=== PATIENT | male | born 1980 | race Caucasian/White ===

== ENCOUNTER 2019-05-29 11:55 | Emergency (ER) | payer OTHER ==
[~2019-05-29] VITALS: Ht 180.3 cm; Wt 134.3 kg
[2019-05-29 12:56] LABS: ANION GAP 8 mmol/L (7-16); BUN 17 mg/dL (7-18); CHLORIDE 100 mmol/L (98-107); CO2 29 mmol/L (21-32); CREATININE 1.3 mg/dL (0.7-1.3); GLUCOSE 244 mg/dL (74-106); POTASSIUM 4.2 mmol/L (3.5-5.1); SODIUM 137 mmol/L (136-145)
[2019-05-29 12:59] LABS: INR 1.1
[2019-05-29 13:06] LABS: MAGNESIUM 2.2 mg/dL (1.8-2.4); TROPONIN-I <0.06 ng/mL (<0.06)
--- NOTE | 2019-05-29 16:18 | EKG ---
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 Borderline prolonged IA interval LAE, consider biatrial enlargement No previous ECG available for comparison Electronically Signed On 05-29-2019 16:18:00 PROJECT INTERN by Dario Sigala [email or web address] <ELECTRONICALLY SIGNED> By: Dario Sigala MD 05/29/19 1618 1154 1154 Dario Sigala MD /ZELDA
--- NOTE | 2019-05-29 16:19 | EKG ---
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
[2019-05-29] MEDS ORDERED: PRADAXA150 MG PO (16:40)
[2019-05-29] MEDS ORDERED: CALAN SR240 MG PO (16:40)
[2019-05-29 17:12] VITALS: BP 108/66
== END 2019-05-29 17:13 | disposition home or self-care (01) ==
LOC: ER 11:55
PROVIDERS: Emergency Medicine Emergency Medical Services
DX: I48.0 Paroxysmal atrial fibrillation (principal); R42 Dizziness and giddiness; E11.9 Type 2 diabetes mellitus without complications; J44.9 Chronic obstructive pulmonary disease, unspecified

== ENCOUNTER 2019-06-02 15:48 | Inpatient (IN) | payer OTHER ==
[~2019-06-02] VITALS: Ht 152.4 cm; Wt 133.4 kg
[~2019-06-02 15:48] MED LIST: CALAN SR240 MG PO; PRADAXA150 MG PO
[2019-06-02 15:49] VITALS: BP 134/77
[2019-06-02 16:10] LABS: ABSOLUTE NEUTROPHILS 8.3 thou/uL (1.4-8.2); BASOPHILS 0.9 % (0.0-2.0); EOSINOPHILS 0.2 % (0.0-3.0); HEMATOCRIT 45.5 % (42.0-52.0); HEMOGLOBIN 15.2 gm/dL (14.0-18.0); LYMPHOCYTES 20.6 % (24.0-44.0); MCH 28.8 pg (26.0-34.0); MCHC 33.4 g/dL (28.0-37.0); MCV 86.4 fL (80.0-100.0); MONOCYTES 5.9 % (1.0-8.0); PLATELET COUNT 224 thou/uL (150-400); POLYS 72.4 % (36.0-66.0); RBC 5.27 mil/uL (4.50-6.00); RDW 13.9 % (10.5-14.5); WBC 11.5 thou/uL (4.0-11.0)
[2019-06-02 16:19] LABS: ANION GAP 12 mmol/L (7-16); BUN 16 mg/dL (7-18); CALCIUM 8.8 mg/dL (8.5-10.1); CHLORIDE 98 mmol/L (98-107); CO2 24 mmol/L (21-32); GLUCOSE 207 mg/dL (74-106); SODIUM 134 mmol/L (136-145)
[2019-06-02 16:28] LABS: SGOT 33 U/L (15-37); SGPT 51 U/L (30-65); TOTAL BILIRUBIN 0.3 mg/dL (<0.1-1.0); TOTAL PROTEIN 8.9 g/dL (6.4-8.2); TROPONIN-I <0.06 ng/mL (<0.06)
[2019-06-02 18:00] VITALS: BP 133/67
[2019-06-02 18:16] VITALS: BP 118/73
--- NOTE | 2019-06-02 19:20 | NUR ---
PATIENT ARRIVED FROM ED VIA W/C, ALERT AND ORIENTED X3, AND VSS. ORIENTED TO ROOM, AND THE UNIT. REPORT GIVEN DAVID Garcia RN TO COMPLETE ADMISION.
[2019-06-02 20:12] VITALS: BP 106/63
[2019-06-03 00:24] VITALS: BP 112/64
[2019-06-03] MEDS ORDERED: VERAPAMIL E.R240 M1 PO (00:24)
[2019-06-03] MEDS ORDERED: ATENOLOL 100MG100 MG PO (00:25)
[2019-06-03] MEDS ORDERED: IBUPROFEN 800800 M1 PO (00:26)
[2019-06-03] MEDS ORDERED: NORCO 5-325 TA1 EAC1 PO (00:28)
[2019-06-03] MEDS ORDERED: METOCLOPRAMIDE10 MG PO (00:29)
[2019-06-03] MEDS ORDERED: NOVOLOG100 UNIT/1 SUBQ (00:32)
[2019-06-03] MEDS ORDERED: LANTUS SUBQ ×2 (00:33→00:37)
[2019-06-03] MEDS ORDERED: NOVOLOG100 UNIT/M SUBQ (00:36)
[2019-06-03] MEDS ORDERED: EFFEXOR XR150 MG PO (01:05)
[2019-06-03] MEDS ORDERED: LIPITOR40 MG PO (01:06)
[2019-06-03] MEDS ORDERED: FLOMAX0.4 MG PO (01:07)
[2019-06-03] MEDS ORDERED: JANUMET XR 50-1 EAC1 PO (01:09)
[2019-06-03] MEDS ORDERED: PRINIVIL20 M1 PO (01:11)
[2019-06-03] MEDS ORDERED: HYDROCHLOROTHIA25 M2 PO (01:13)
[2019-06-03] MEDS ORDERED: JARDIANCE25 MG PO (01:14)
[2019-06-03] MEDS ORDERED: ACTOS 45 MG45 M1 PO (01:16)
[2019-06-03 03:45] VITALS: BP 106/68
--- NOTE | 2019-06-03 05:55 | NUR ---
PATIENTS CARES WERE ASSUMED AT SHIFT CHANGE PATIENT WAS DELIVERED BEFORE FREIGHT BREAKER STARTED. PATIENT WAS ADMITTED, MED REC WAS FINISHED. CALLED FOR ORDERS FROM CARDIOLOGY. PATIENT SENT OVER A DIRECT ADMITT WITH NO ORDERES. HOURLY ROUNDS WERE DONE AND PATIENT WAS RESTING WELL. CONSULT TO THE HOSPITIALIST GROUP FOR MEDICAL CARE. HOURLY ROUNDS WERE DONR. THE BED IS IN A LOW AND LOCKED POSITION
[2019-06-03 07:40] VITALS: BP 95/47
--- NOTE | 2019-06-03 08:20 | EKG ---
[facility] [place] [address] ELECTROCARDIOGRAM REPORT Name: EMPERATRIZ RASHEED Room #: 210-P ADM IN M.R.#: [id number] Admission: 06/02/19 Attend Phys: Mason Pinto Discharge: Date of : 76 Report #: [id number] THIS REPORT FOR: cc: MERLYN - Family physician unknown FAM - Family physician unknown Dario Sigala MD ~ THIS REPORT FOR: //name// [facility] ED Test Date: 2019-06-02 Test Time: 15:55:43 Pat Name: EMPERATRIZ RASHEED Department: Room: 210 Gender: M Seaman: MAIA : 1980 Requested By: Mundo Clay Order Number: [id number] MD: Dario Sigala Measurements Intervals [place] Rate: 124 P: 0 [place]: 140 QRS: 95 QRSD: 97 T: -14 QT: 327 QTc: 470 Interpretive Statements Sinus tachycardia Borderline right axis deviation Borderline T wave abnormalities Baseline wander in lead(s) II,III,aVF,V4 Compared to ECG 05/29/2019 13:28:55 T-wave abnormality now present Sinus rhythm no longer present Electronically Signed On 06-03-2019 8:19:19 LANDSCAPE SUPERVISOR by Dario Sigala [email or web address] <ELECTRONICALLY SIGNED> By: Dario Sigala MD 06/03/19 0819 1555 1555 Dario Sigala MD /EPI
[2019-06-03 08:50] LABS: CHOLESTEROL 163 mg/dL (<200); HDL CHOLESTEROL 51 mg/dL (>40); LDL CHOLESTEROL 87 mg/dL (<100); TC:HDL 3.2 Ratio (Not establshd); TRIGLYCERIDE 127 mg/dL (<150); VLDL 25 mg/dL (<40)
[2019-06-03 12:52] VITALS: BP 120/71
--- NOTE | 2019-06-03 13:38 | 2DMMODE ---
[facility] [place] [address] 2 D/M-MODE ECHOCARDIOGRAM Name: EMPERATRIZ RASHEED Room #: 210-P ADM IN M.R.#: [id number] Admission: 06/02/19 Attend Phys: Mason Pinto Discharge: Date of : 76 Report #: [id number] THIS REPORT FOR: cc: FAM - Family physician unknown FAM - Family physician unknown Mason Pinto MD ~ APPROVED REPORT Study performed: 06/03/2019 09:32:34 EXAM: Comprehensive 2D, Doppler, and color-flow Echocardiogram Patient Location: Bedside Room #: 210 Status: routine BSA: 2.49 HR: 70 bpm BP: 95/47 mmHg Rhythm: NSR Other Information Study Quality: Good Indications AFib, HTN, DMII 2D Dimensions RVDd: 43.32 mm IVSd: 13.53 (7-11mm) LVDd: 56.25 mm PWd: 12.68 (7-11mm) Ascending Ao: 33.27 (22-36mm) LVDs: 36.85 (25-40mm) Aortic Root: 34.78 mm Volumes Left Atrial Volume (Systole) Single Plane 4CH: 71.95 mL Single Plane 2CH: 64.68 mL LA ESV Index: 30.00 mL/m2 Aortic Valve AoV Peak Lane.: 1.08 m/s AO Peak Gr.: 5.09 mmHg LVOT Max P.62 mmHg LVOT Max V: 0.95 m/s Mitral Valve [facility] [address] [place] [address] 2 D/M-MODE ECHOCARDIOGRAM Name: EMPERATRIZ RASHEED Room #: 210-P ADM IN M.R.#: [id number] Admission: 06/02/19 Attend Phys: Mason Martini Discharge: Date of : 76 Report #: [id number] E/A Ratio: 1.4 MV Decel. Time: 156.[address] 0.93 m/s MV A Lane.: 0.66 m/s IVRT: 83.04 ms Pulmonary Valve PV Peak Lane.: 1.17 m/s PV Peak Gr.: 5.49 mmHg Pulmonary Vein P Vein S: 0.68 m/s P Vein A: 0.19 m/s P Vein D: 0.51 m/s P Vein S/D Ratio: 1.33 Left Ventricle The left ventricle is normal size. There is normal LV segmental wall motion. Mild concentric left ventricular hypertrophy. The left ventricular systolic function is normal. The left ventricular ejection fraction is within the normal range. LVEF is 60%. Moderate diastolic dysfunction is present (pseudonormal filling). Right Ventricle Right ventricle is mild to moderately dilated. The right ventricular systolic function is normal. Atria The left atrium size is normal. Left atrial volume index 30 ml/m^2. The right atrium size is normal. Aortic Valve Aortic valve is suboptimally visualized. No aortic regurgitation is present. There is no aortic valvular stenosis. Mitral Valve The mitral valve is normal in structure. Trace mitral regurgitation. No evidence of mitral valve stenosis. Tricuspid Valve The tricuspid valve is normal in structure. Trace tricuspid regurgitation. Unable to estimate pulmonary artery pressure. Pulmonic Valve The pulmonary valve is normal in structure. Trace, eccentric pulmonic regurgitation. [facility] [address] [place] [address] 2 D/M-MODE ECHOCARDIOGRAM Name: EMPERATRIZ RASHEED Room #: 210-[facility] IN M.R.#: [id number] Admission: 06/02/19 Attend Phys: Mason Martini Discharge: Date of : 76 Report #: [id number] Great Vessels The aortic root is normal in size. The ascending aorta is normal in size. IVC is not well visualized. Pericardium Prominent anterior epicardial fat pad is present. <Conclusion> The left ventricle is normal size. LVEF is 60%. Right ventricle is mild to moderately dilated. The right ventricular systolic function is normal. Aortic valve is suboptimally visualized. The mitral valve is normal in structure. Trace mitral regurgitation. The tricuspid valve is normal in structure. Trace tricuspid regurgitation. Unable to estimate pulmonary artery pressure. The pulmonary valve is normal in structure. Trace, eccentric pulmonic regurgitation. Prominent anterior epicardial fat pad is present. <ELECTRONICALLY SIGNED> By: Mason Pinto MD 06/03/19 [id number] Mason Pinto MD /INF
[2019-06-03 15:59] VITALS: BP 109/77
--- NOTE | 2019-06-03 18:44 | NUR ---
ASSUMMED PT CARE AT APPROXIMATELY 0700. PT A&O X4. ASSESSMENT CHARTED. FALL PRECAUTIONS IN PLACE. PT DENIES HAVING CHEST PAIN. PT STATES HE HAS SOB ON EXERSION. PT O2 SAT STABLE. PT STATED HE HAD A TOOTHACHE AND HEADACHE. PT RECIEVED ANALGESICS. PT STATED ANALGESICS HELPED RELIEVE PAIN. NOTIFIED DR. WARD OF LOW GRADE TEMP. ORDERED NEW ORDERS. NEW ORDERS IMPLEMENTED. NOTIFIED OF PT HAVING HYPOTENSION IN AM. STATED TO HOLD SOME MEDS AND TO GIVE OTHERS. VITAL SIGNS STABLE. PT HAD CARDIAC STRESS TEST TODAY. PT AND PT'S FAMILY EDUCATED ABOUT POC. PT AND PT'S FAMILY STATED UNDERSTANDING AND DENIED HAVING FURTHER QUESTIONS. PT COMFORTABLE IN BED. PT DENIES HAVING FURTHER COCNERNS. BLOOD SUGARS STABLE. PT AMBULATES STEADY/INDEPENDENT.
[2019-06-03 20:15] VITALS: BP 123/84
[2019-06-04 04:45] VITALS: BP 102/59
--- NOTE | 2019-06-04 05:36 | NUR ---
ASSUMED PT CARE AT 1900. PT IS ALERT AND ORIENTED WITH NO SIGN OF DISTRESS. PT IS LAYING IN BED. DENIES ANY NEED. ASSESSMENT COMPLETED AND DOCUMENTED. VERNALIZES PAIN IN TOOTH. SCHEDULED MEDS ADMINISTERED TO PT. TOLERATED PO INTAKE. CARDIAC CATH SCHEDULED TO TODAY. PT TO BE NPO AFTER BREAKFAST. FAMILY AT BEDSIDE. CONTINUE TO MONITOR PT.
[2019-06-04 07:48] VITALS: BP 107/74
[2019-06-04 07:50] LABS: ABSOLUTE NEUTROPHILS 6.1 thou/uL (1.4-8.2); BASOPHILS 1.3 % (0.0-2.0); EOSINOPHILS 1.3 % (0.0-3.0); HEMATOCRIT 44.9 % (42.0-52.0); HEMOGLOBIN 14.7 gm/dL (14.0-18.0); LYMPHOCYTES 30.4 % (24.0-44.0); MCH 28.5 pg (26.0-34.0); MCHC 32.8 g/dL (28.0-37.0); MCV 86.8 fL (80.0-100.0); MONOCYTES 7.1 % (1.0-8.0); PLATELET COUNT 229 thou/uL (150-400); POLYS 59.9 % (36.0-66.0); RBC 5.17 mil/uL (4.50-6.00); RDW 13.5 % (10.5-14.5); WBC 10.2 thou/uL (4.0-11.0)
[2019-06-04 07:59] LABS: CALCIUM 9.4 mg/dL (8.5-10.1); CREATININE 0.9 mg/dL (0.7-1.3); MAGNESIUM 1.9 mg/dL (1.8-2.4); POTASSIUM 3.9 mmol/L (3.5-5.1)
--- NOTE | 2019-06-04 10:41 | NUR ---
Patient a direct admit from Cardiology office for tachycardia. Met with patent he reports no insurance. He has preexisting medical condition that patient reports with [facility] care could not afford. [facility] referral. [facility] information given. Patient does have PCP Dr Swetha Jaramillo. [facility] following.
--- NOTE | 2019-06-04 11:40 | HC ---
[facility] [place] [address] CONSULTATION Name: EMPERATRIZ RASHEED Room #: 210-P ADM IN M.R.#: [id number] Admission: 06/02/19 Attend Phys: Mason Pinto Discharge: Date of : 76 Report #: [id number] THIS REPORT FOR: cc: MERLYN - Family physician unknown MERLYN - Family physician unknown Binh Velasquez MD ~ CC: MERLYN unknown Mason Pinto DATE OF SERVICE: 06/04/2019 ENDOCRINE CONSULTATION NOTE CONSULTING PHYSICIAN: Dr. Pinto. REASON FOR CONSULTATION: Uncontrolled type 2 diabetes mellitus, severe hyperglycemia. HISTORY OF PRESENT ILLNESS: This is a 39-year-old male patient whose medical background is significant for multiple medical issues including type 2 diabetes mellitus, hypertension, hyperlipidemia, atrial fibrillation as well as obesity. The patient presented to Dr. Pinto's office on the day of admission with complaints of palpitations that were relentless and uncomfortable. The patient was found to be in atrial fibrillation with RVR and was later on admitted for further care and monitoring. On further questioning, the patient indicated that he was diagnosed with type 2 diabetes mellitus in 2009. He notes that he has been shown to have severe insulin resistance and has ended up on a regimen comprised of Lantus insulin 55 units q.p.m., Humalog insulin 25 units before meals, Jardiance 25 mg daily, Actos 45 mg daily, and Janumet mg b.i.d. He notes that despite this aggressive regimen that his daytime blood glucose values are typically often over 220 mg/dL. His fasting blood glucose values typically run in the 120-180 mg/dL. The patient does not have major issues with hypoglycemia. The patient is not aware of any documented diabetic complications including retinopathy, nephropathy, and neuropathy. He does not have documented CAD, but has dealt with issues of atrial fibrillation for quite some time. REVIEW OF SYSTEMS: CONSTITUTIONAL: Fatigue, tiredness, but not fever or chills or significant body weight changes. HEENT: Negative for sinus pain, ear drainage. PULMONARY: Negative for shortness of breath, cough or hemoptysis. CARDIAC: Noted for palpitations. Slight lightheadedness, but not chest pain or lower extremity swelling. GASTROINTESTINAL: Negative for abdominal pain, nausea, vomiting, or changes in bowel movement frequency. NEUROLOGY: Negative for loss of consciousness, seizure activity, and frequent [facility] [address] [place] [address] CONSULTATION Name: EMPERATRIZ RASHEED Room #: 210-P [facility] IN .R.#: [id number] Admission: 06/02/19 Attend Phys: Mason Pinto Discharge: Date of : 76 Report #: [id number] severe headaches. PSYCHIATRIC: Negative for delusions or hallucinations. SKIN: Negative for rash, ulceration or other major abnormalities. Otherwise, his review of systems is noncontributory unless mentioned in HPI. PAST MEDICAL HISTORY: 1. Type 2 diabetes mellitus. 2. Hypertension. 3. Hyperlipidemia. 4. Atrial fibrillation. 5. Obesity. 6. COPD 7. Left arm clot. OUTPATIENT MEDICATIONS: Include: 1. Lantus insulin 55 units q. p.m. 2. Humalog 25 units' t.i.d. a.c. 3. Jardiance 25 mg daily. 4. Janumet mg b.i.d. 5. Actos 45 mg daily. 6. Pradaxa 150 mg b.i.d. 7. Verapamil 240 mg daily. ALLERGIES: No known drug allergies. PAST SURGICAL HISTORY: Noted for an open lung procedure a few years ago. FAMILY HISTORY: Extensive for type 2 diabetes mellitus and premature deaths affecting his father, mother, and other relatives. SOCIAL HISTORY: He is , has 1 child. Denies use of tobacco, alcohol or illicit drugs. He works in the [employer] industry. PHYSICAL EXAMINATION: GENERAL: Pleasant male patient who is not in apparent distress. VITAL SIGNS: Blood pressure is 107/74 mmHg, heart rate is 64 beats per minute, respiration 18 per minute, and temperature 36.7 Celsius. CONSTITUTIONAL: He is lying in bed comfortably, does not appear to be in pain or distress. HEENT: Anicteric sclerae. Intact extraocular motions. NECK: Supple, without JVD, carotid bruits or lymphadenopathy. I do not appreciate thyromegaly. CHEST: Noted for good air entry bilaterally with scattered rales and rhonchi. HEART: Irregularly irregular. No murmurs. ABDOMEN: Soft, lax. No guarding. Active bowel sounds. EXTREMITIES: Lower extremity exam is negative for ankle edema, skin breaks, and [address] [address] CONSULTATION Name: EMPERATRIZ RASHEED Room #: 210-P ADM IN M.R.#: [id number] Admission: 06/02/19 Attend Phys: Mason Pinto Discharge: Date of : 76 Report #: [id number] ulcerations or other deformities. He has palpable pedal pulses. Sensation to light touch is largely intact. NEUROLOGIC: Awake, alert and oriented to time, place and person. The remainder of his examination is nonfocal. PSYCHIATRY: Pleasant, interactive, and appropriate. Normal mood and affect, answers my questions appropriately. LABORATORY DATA: Blood glucose values since arrival has run between 116-212 mg/dL and was at 154 mg/dL right before this dictation. Otherwise, sodium 135, potassium 3.9, chloride 99, CO2 of 30, anion gap 6, BUN 19, creatinine 0.9, AST 33, total bilirubin 0.3, calcium 9.4, magnesium 1.9, alkaline phosphatase 84, ALT 51, total protein 8.9, albumin 4.0, EGFR 93. Total cholesterol 163, triglycerides 127, HDL 51, and LDL 87. INR 1.1. White blood count 10.2, hemoglobin 14.7, hematocrit 44.9, and platelets 229. ASSESSMENT AND PLAN: 1. Type 2 diabetes mellitus. As noted above, the patient has struggled to achieve adequate control despite having an aggressive antidiabetic regimen. This certainly reflects the outlook of insulin resistance. I will obtain a hemoglobin A1c to better assess his overall level of control. The patient has been started on his usual insulin regimen of Lantus insulin 55 units q.p.m. and Humalog 25 units t.i.d. a.c. in addition to support with a Humalog supplemental scale low dose. In the setting of attending angiogram, the patient is not able to resume metformin therapy at this point in time and I would not recommend maintaining Jardiance presently until he is unsure to be clinically stable. That said, I will compensate for these missing items by adding linagliptin 5 mg daily and raising his Lantus a bit to 60 units q.p.m. and his Humalog to 28 units t.i.d. a.c. Also, I will raise his Humalog supplemental scale to moderate intensity for a more effective coverage. Blood glucose monitoring will commence a.c. and at bedtime. I counseled the patient extensively about the fact that we certainly have different and potentially more effective options in the outpatient setting including the inclusion of his GLP-1 analog as well as the utilization of concentrated insulin including Humulin U 500 or Toujeo U-300 towards better control. Such changes would be most suited when the patient is ready for discharge. 2. Hypertension. The patient's level of blood pressure control is adequate on the current lisinopril and atenolol regimen; he is to continue with the same. 3. Hyperlipidemia. The patient's lipid panel reflected a reasonable level of control; he is to continue with the current atorvastatin regimen. 4. Atrial fibrillation. The patient is undergoing a coronary catheterization procedure later on today to better understand and potentially intervene with this issue. I will defer to Dr. [place]into [place] [address] CONSULTATION Name: EMPERATRIZ RASHEED Room #: 210-P [facility] IN M.R.#: [id number] Admission: 06/02/19 Attend Phys: Mason Pinto Discharge: Date of : 76 Report #: [id number] I certainly appreciate this consultation by Dr. Pinto. <ELECTRONICALLY SIGNED> By: Binh Velasquez MD 06/04/19 1140 1014 1109 Binh Velasquez MD /len
[2019-06-04 11:48] VITALS: BP 123/83
[2019-06-04 16:30] VITALS: BP 114/61
--- NOTE | 2019-06-04 18:03 | NUR ---
ASSUMMED PT CARE AT APPROXIMATELY 0700. PT A&O X4. ASSESSMENT CHARTED. FALL PRECAUTIONS IN PLACE. PT DENIES HAVING CHEST PAIN. PT DENIES HAVING SOB. PT STATED HE HAD A TOOTHACHE. PT RECIEVED ANALGESICS. PT STATED ANALGESICS HELPED RELIEVE PAIN. VITAL SIGNS STABLE. BLOOD SUGARS STABLE. DUE TO PT HAVING POSSIBLE INFECTION FROM TOOTH ABSESS, DR. NINO CANCELED CARDIAC CATH PROCEDURE. PT COMFORTABLE IN BED. PT DENIES HAVING FURTHER CONCERNS. PT AND PT'S FAMILY EDUCATED ABOUT POC. PT AND PT'S FAMILY STATED UNDERSTANDING AND DENIED HAVING FURTHER QUESTIONS.
[2019-06-04 20:45] VITALS: BP 112/62
[2019-06-05] VITALS (7 sets, daily range): BP systolic 82–126; BP diastolic 43–73
[2019-06-05 00:06] LABS: GLYCOHEMOGLOBIN (HGB A1C) 8.7 % (4.8-5.6)
--- NOTE | 2019-06-05 05:50 | NUR ---
ASSUMED PT CARE AROUND 1945. PT WAS RESTING WIHT FAMILY AT BEDSIDE. PT C/O TOOTH PAIN. MEDICATION ADMINISTERED PER EMAR. PT RESTED THRU NIGHT WITH MINIMAL INTERRUPTIONS. WILL CONTINUE TO MONITOR PER PLAN OF CARES.
[2019-06-05 06:01] LABS: ABSOLUTE NEUTROPHILS 6.9 thou/uL (1.4-8.2); BASOPHILS 0.5 % (0.0-2.0); EOSINOPHILS 1.3 % (0.0-3.0); HEMATOCRIT 40.3 % (42.0-52.0); HEMOGLOBIN 13.4 gm/dL (14.0-18.0); LYMPHOCYTES 28.9 % (24.0-44.0); MCH 28.9 pg (26.0-34.0); MCHC 33.2 g/dL (28.0-37.0); MONOCYTES 8.5 % (1.0-8.0); PLATELET COUNT 218 thou/uL (150-400); POLYS 60.8 % (36.0-66.0); RBC 4.63 mil/uL (4.50-6.00); RDW 13.4 % (10.5-14.5); WBC 11.4 thou/uL (4.0-11.0)
[2019-06-05 06:36] LABS: CALCIUM 8.9 mg/dL (8.5-10.1); CREATININE 0.9 mg/dL (0.7-1.3); MAGNESIUM 1.9 mg/dL (1.8-2.4); PHOSPHORUS 4.3 mg/dL (2.5-4.9); POTASSIUM 3.9 mmol/L (3.5-5.1)
--- NOTE | 2019-06-05 17:19 | NUR ---
CHECKED ORTOSTATIC BLOOD PRESSURE AND PT WILL BE NOT DISCHARGING TODAY PER DR. POWERS. WILL CONTINUE TO ASSESS.
[2019-06-06 04:50] VITALS: BP 108/52
--- NOTE | 2019-06-06 05:36 | NUR ---
ASSUMED PT CARE AROUND 1920. PT RESTING IN BED WITH FAMILY AT BEDSIDE. PT C/O TOOTH PAIN. PAIN MEDICATION GIVEN PER EMAR. PT RESTED THRU NIGHT WITH MINIMAL INTERRUPTIONS. WILL CONTINUE TO MONITOR AND PT PROGRESSING TOWARDS DISCHARGE.
[2019-06-06 07:00] VITALS: BP 90/43
[2019-06-06] MEDS ORDERED: AUGMENTIN 875-1 EACH PO (07:50)
[2019-06-06] MEDS ORDERED: ALTACE5 MG PO (07:51)
[2019-06-06] MEDS ORDERED: IMDUR 60 MG TAB60 M1 PO (07:51)
[2019-06-06] MEDS ORDERED: HYDROCHLOROTHIA25 M1 PO (07:52)
[2019-06-06] MEDS ORDERED: TRADJENTA5 MG PO (07:52)
[2019-06-06 08:36] LABS: EOSINOPHILS 1.2 % (0.0-3.0); HEMATOCRIT 41.5 % (42.0-52.0); HEMOGLOBIN 13.9 gm/dL (14.0-18.0); LYMPHOCYTES 30.1 % (24.0-44.0); MCHC 33.6 g/dL (28.0-37.0); MCV 86.4 fL (80.0-100.0); MONOCYTES 8.4 % (1.0-8.0); PLATELET COUNT 205 thou/uL (150-400); POLYS 59.3 % (36.0-66.0); RBC 4.81 mil/uL (4.50-6.00); RDW 13.6 % (10.5-14.5); WBC 10.1 thou/uL (4.0-11.0)
[2019-06-06 09:01] LABS: ALBUMIN 3.3 g/dL (3.4-5.0); CALCIUM 9.2 mg/dL (8.5-10.1); CREATININE 0.9 mg/dL (0.7-1.3); MAGNESIUM 1.7 mg/dL (1.8-2.4); POTASSIUM 4.1 mmol/L (3.5-5.1); TOTAL BILIRUBIN 0.3 mg/dL (<0.1-1.0); TOTAL PROTEIN 7.5 g/dL (6.4-8.2)
[2019-06-06 11:30] VITALS: BP 107/61
[2019-06-06 12:15] VITALS: BP 101/51; BP 91/50; BP 96/60
[2019-06-06 13:31] VITALS: BP 101/51
--- NOTE | 2019-06-06 14:28 | NUR ---
ASSUMMED PT CARE AT APPROXIMATELY 0700. PT A&O X4. ASSESSMENT CHARTED. FALL PRECAUTIONS IN PLACE. PT DENIES HAVING CHEST PAIN. PT DENIES HAVING SOB. PT DENIES HAVING ACUTE PAIN. INFORMED BHAKTI RUIZ OF LOW BP IN AM. AUDIE STATED TO HOLD A COUPLE BP MEDS. IMPLEMENTED ORDERS. VITAL SIGNS STABLE. BLOOD SUGARS STABLE. PT DISCHARGING HOME C SELF CARE. PT AND PT'S FAMILY EDUCATED ABOUT POC. PT AND PT'S FAMILY STATED UNDERSTANDING AND DENIED HAVING FURTHER QUESTIONS. PT COMFORTABLE. PT DENIES HAVING FURTHER CONCERNS. IV DC. TELE DC. PT AMBULATES STEADY/INDEPENDENT.
== END 2019-06-06 14:49 | disposition home or self-care (01) | DRG 309 ==
LOC: ER 15:48 → 2N 18:07 → EROBS 18:07 → 2N 18:16 → ENTRNSPT 06-06 14:35 → EDTRNSPTSTS 06-06 14:37 → 2N 06-06 14:49
PROVIDERS: Emergency Medicine; Internal Medicine; Nurse Practitioner Family; ADMIT Internal Medicine
DX: I48.0 Paroxysmal atrial fibrillation (principal); Z68.43 Body mass index [BMI] 50.0-59.9, adult; E11.9 Type 2 diabetes mellitus without complications; J44.9 Chronic obstructive pulmonary disease, unspecified; R00.0 Tachycardia, unspecified; F32.9 Major depressive disorder, single episode, unspecified; F41.9 Anxiety disorder, unspecified; E78.5 Hyperlipidemia, unspecified; E66.01 Morbid (severe) obesity due to excess calories; K04.7 Periapical abscess without sinus; I95.1 Orthostatic hypotension; Z86.718 Personal history of other venous thrombosis and embolism; Z23 Encounter for immunization
CPT/HCPCS: 10081